=== PATIENT | male | born 1990 | race Caucasian/White ===

== ENCOUNTER 2017-04-01 02:02 | Emergency (ER) | payer OTHER ==
[2017-04-01 02:13] VITALS: BP 148/88; PULSE 88; O2SAT 98
[2017-04-01] MEDS ORDERED: Adacel Vial IM ONE ×2 (02:29→02:33)
--- NOTE | 2017-04-01 02:29 | ERPHSYRPT ---
- History of Present Illness Time Seen by Provider: 04/01/17 02:10 Source: patient Exam Limitations: clinical condition Patient Subjective Stated Complaint: Right Hand Pain Triage Nursing Assessment: Pt states he was out with friends, drinking alcohol, became angry and punched a wall. Pt has swelling noted to right hand, base of 3rd-5th digits. Pt denies other pain at this time. Pt is A&O x4, no distress noted, no active bleeding noted, skin PWD. Physician History: PATIENT BECAME ANGRY AND STRUCK RIGHT HAND AGAINST WALL SUSTAINED SWELLING OVER RIGHT HAND ASSOCIATED WITH ABRASIONS. Occurred: just prior to arrival Method of Injury: direct blow Quality: constant Severity of Pain-Max: moderate Severity of Pain-Current: moderate Extremities Pain Location: hand: right Modifying Factors: Improves With: movement Associated Symptoms: none Allergies/Adverse Reactions: No Known Drug Allergies Allergy (Verified 03/30/16 15:03) Home Medications: No Home Meds [No Home Meds] 1 ea UD 11/15/13 [History] Hx Tetanus, Diphtheria Vaccination/Date Given: No Hx Influenza Vaccination/Date Given: No Hx Pneumococcal Vaccination/Date Given: No Immunizations Up to Date: No - Review of Systems Constitutional: No Symptoms Musculoskeletal: Injury, Joint Pain, Joint Swelling Neurological: No Symptoms - Past Medical History Pertinent Past Medical History: Yes Neurological History: No Pertinent History, Migraines ENT History: No Pertinent History Cardiac History: Hypertension Respiratory History: No Pertinent History Endocrine Medical History: Other Musculoskeletal History: No Pertinent History GI Medical History: Irritable Bowel, Other History: No Pertinent History Psycho-Social History: No Pertinent History Male Reproductive Disorders: No Pertinent History Other Medical History: PANCREATITIS, PRE STAGES CROHNS - Past Surgical History Past Surgical History: Yes Neuro Surgical History: No Pertinent History Cardiac: No Pertinent History Respiratory: No Pertinent History Gastrointestinal: Cholecystectomy Genitourinary: No Pertinent History Musculoskeletal: No Pertinent History Male Surgical History: No Pertinent History - Social History Smoking Status: Current every day smoker How long have you smoked: 7 years Exposure to second hand smoke: Yes Drug Use: none Patient Lives Alone: No - Nursing Vital Signs Nursing Vital Signs: Initial Vital Signs Temperature 98.3 F 04/01/17 02:09 Pulse Rate 88 04/01/17 02:09 Respiratory Rate 14 04/01/17 02:09 Blood Pressure 148/88 04/01/17 02:09 O2 Sat by Pulse Oximetry 98 04/01/17 02:09 Pain Scale Pain Intensity 6 - Physical Exam General Appearance: no apparent distress Hand Exam: soft tissue tenderness, swelling (TENDERNESS WITH SWELLING DISTAL 3RD RIGHT 4TH -5TH METACARPALS, WITH ABRASIONS, NO ECCHYMOSIS, FULL RANGE OF MOTION MCP, PIP AND DIP JOINT ALL DIGITS.) SpO2: 98 Oxygen Delivery: Room Air - Radiology Exams Right Hand X-ray Interpretation: Interpreted by me (SOFT TISSUE WITHOUT EVIDENCE OF FRACTURE) Ordered Tests: Active Orders 24 hr Category Date Time Status Splint STAT Care 04/01/17 02:34 Ordered HAND (MINIMUM 3 VIEWS) Stat Exams 04/01/17 02:17 Taken Medication Summary Discontinued Medications Generic Name Dose Route Start Last Admin Trade Name Freq PRN Reason Stop Dose Admin Diphtheria/Tetanus/Acell Pertussis 0.5 ml 04/01/17 02:29 04/01/17 02:34 Adacel Vial IM 04/01/17 02:30 0.5 ml .ONCE ONE Administration Diphtheria/Tetanus/Acell Pertussis Confirm 04/01/17 02:33 Adacel Vial Administered 04/01/17 02:34 Dose 0.5 ml IM .STK-MED ONE Tramadol HCl 50 mg 04/01/17 02:34 04/01/17 02:37 Ultram 50 Mg PO 04/01/17 02:35 50 mg STAT ONE Administration - Progress Progress: pain not gone completely Progress Note: 04/01/17 02:33 ADMINISTERED T-DAP 0.5ML IM, ULTRAM 50MG ORALLY, ALUMINUM APPLIED BELOW SMALL FINGER. Counseled pt/family regarding: diagnosis, rad results - Departure Time of Disposition: 03:45 Departure Disposition: Home Clinical Impression: CONTUSION RIGHT HAND Condition: Stable Critical Care Time: No Referrals: TAM RODRIGUEZ [Primary Care Provider] - Additional Instructions: MAINTAIN ALUMINUM FOAM SPLINT FOR 4 DAYS THEN REMOVE. APPLY ICE OVER HAND SWELLING EVERY 4 HOURS, 30 MINUTES FOR 48 HOURS. ULTRAM 50MG EVERY 4-6 HOURS FOR PAIN NEEDED. Prescriptions: Tramadol HCl 50 mg [Ultram 50 mg] 50 mg PO Q4-6HPRN PRN #15 tablet PRN Reason: Pain
[2017-04-01] MEDS ORDERED: ULTRAM 50 MG PO ONE (02:34)
[2017-04-01] MEDS ORDERED: ULTRAM 50 MG ONE (02:37)
--- NOTE | 2017-04-01 06:56 | XRAY ---
Indication: Fourth/fifth metacarpal pain following injury. Comparison: None 3 views of the right hand obtained. No bony, articular, or soft tissue abnormalities.
== END 2017-04-01 02:58 | disposition home or self-care (01) ==
LOC: ED 02:02
DX: S60.221A Contusion of right hand, initial encounter (principal); S60.511A Abrasion of right hand, initial encounter; M79.641 Pain in right hand; M79.89 Other specified soft tissue disorders; W22.8XXA Striking against or struck by other objects, initial encounter; Z72.0 Tobacco use
CPT/HCPCS: 73130; 90471; 90715; 99283; A9270-GY

== ENCOUNTER 2017-04-18 02:13 | Emergency (ER) | payer OTHER ==
--- NOTE | 2017-04-18 02:33 | ERPHSYRPT ---
- History of Present Illness Time Seen by Provider: 04/18/17 02:20 Source: patient, police Exam Limitations: no limitations Patient Subjective Stated Complaint: PT STATES HE IS HERE TONIGHT TO SEEK HELP FOR HIS ALCOHOL ABUSE. PT CALLED SHERIFF MATY BUSTAMANTE TO SPEAK ABOUT GETTING TREATMENT TONIGHT. PT ADMITS TO DRINKING HEAVILY TONIGHT. PT REPORTS HE HAS CONSUMED APPROXIMATELY 1.5 FIFTHS OF WHISKEY. PT REPORTS HE HAS DRANK HEAVILY SINCE TURNING 22. STATES THAT HE DRINKS CONSISTENTLY AND WILL SOMETIMES TAKES A DAY OR TWO OFF. REPORTS HAVING INFREQUENT THOUGHTS OF HURTING HIMSELF BUT DENIES ANY SUICIDAL IDEATION THIS NIGHT. PT STATES " ALCOHOL IS RUINED EVERYTHING, I FEEL LIKE AN IDIOT FOR COMING NOW" Triage Nursing Assessment: PT IS AOX3, PUPILS PERRL, RESPS EASY AND NON LABORED , RADIAL PULSES STRONG AND EQUAL, ABD IS SOFT NON TENDER, SKIN IS PINK WARM AND DRY. PT IS COOPERATIVE WITH STAFF AT THIS TIME. PT HAS SIGNED CONSENT AND IS VOLUNTARY AT THIS TIME. Physician History: 26 y/o male brought in by police for alcohol intoxication. Pt mentions he has been drinking a 1/5th of vodka throughout the evening and has been drinking consistently since age 22. Pt also mentions he smoked marijuana twice, but denies any other illicit drug use. Pt says that when he drinks alcohol, he has a fleeting thought of not wanting to live but denies any suicide ideation, plan , homicidal ideation, hallucinations. Timing/Duration: today Associated Symptoms: No nausea, No vomiting, No weakness Allergies/Adverse Reactions: No Known Drug Allergies Allergy (Verified 04/18/17 02:27) Home Medications: No Home Meds [No Home Meds] 1 ea ABHIJEET 11/15/13 [History] Hx Tetanus, Diphtheria Vaccination/Date Given: Yes Hx Influenza Vaccination/Date Given: No Hx Pneumococcal Vaccination/Date Given: No Immunizations Up to Date: Yes - Review of Systems Constitutional: No Fever, No Chills Eyes: No Symptoms Ears, Nose, & Throat: No Symptoms Respiratory: No Cough, No Dyspnea Cardiac: No Chest Pain, No Edema, No Syncope Abdominal/Gastrointestinal: No Abdominal Pain, No Nausea, No Vomiting, No Diarrhea Genitourinary Symptoms: No Dysuria Musculoskeletal: No Back Pain, No Neck Pain Skin: No Rash Neurological: No Dizziness, No Focal Weakness, No Sensory Changes Psychological: Alcohol Abuse, No Drug Abuse, No Anxiety, No Suicidal Ideations, No Hallucinations Endocrine: No Symptoms All Other Systems: Reviewed and Negative - Past Medical History Pertinent Past Medical History: Yes Neurological History: No Pertinent History, Migraines ENT History: No Pertinent History Cardiac History: Hypertension Respiratory History: No Pertinent History Endocrine Medical History: Other Musculoskeletal History: No Pertinent History GI Medical History: Crohns Disease, Irritable Bowel, Other History: No Pertinent History Psycho-Social History: No Pertinent History Male Reproductive Disorders: No Pertinent History Other Medical History: PANCREATITIS, PRE STAGES CROHNS, ADHD - Past Surgical History Past Surgical History: Yes Neuro Surgical History: No Pertinent History Cardiac: No Pertinent History Respiratory: No Pertinent History Gastrointestinal: Cholecystectomy Genitourinary: No Pertinent History Musculoskeletal: No Pertinent History Male Surgical History: No Pertinent History - Social History Smoking Status: Current every day smoker How long have you smoked: 7 years Exposure to second hand smoke: Yes Drug Use: marijuana Patient Lives Alone: Yes - Nursing Vital Signs Nursing Vital Signs: Initial Vital Signs Temperature 98.1 F 04/18/17 02:14 Pulse Rate 99 H 04/18/17 02:14 Respiratory Rate 20 04/18/17 02:14 Blood Pressure 171/80 04/18/17 02:14 O2 Sat by Pulse Oximetry 98 04/18/17 02:14 Pain Scale Pain Intensity 0 - Physical Exam General Appearance: no apparent distress, alert Eye Exam: PERRL/EOMI, eyes nml inspection Ears, Nose, Throat Exam: normal ENT inspection, TMs normal, pharynx normal, moist mucous membranes Neck Exam: normal inspection, non-tender, supple, full range of motion Respiratory Exam: normal breath sounds, lungs clear, No respiratory distress Cardiovascular Exam: regular rate/rhythm, normal heart sounds, normal peripheral pulses Gastrointestinal/Abdomen Exam: soft, normal bowel sounds, No tenderness, No mass Back Exam: normal inspection, normal range of motion, No CVA tenderness, No vertebral tenderness Extremity Exam: normal inspection, normal range of motion, pelvis stable Neurologic Exam: alert, oriented x 3, cooperative, normal mood/affect, nml cerebellar function, nml station & gait, sensation nml, No motor deficits Skin Exam: normal color, warm, dry, No rash Lymphatic Exam: No adenopathy SpO2: 98 Oxygen Delivery: Room Air - Course Nursing assessment & vital signs reviewed: Yes Ordered Tests: Active Orders 24 hr Category Date Time Status ACETAMINOPHEN Stat Lab 04/18/17 02:55 Completed CBC W DIFF Stat Lab 04/18/17 02:55 Completed CMP Stat Lab 04/18/17 02:55 Completed ETHYL ALCOHOL Stat Lab 04/18/17 02:55 Completed SALICYLATE Stat Lab 04/18/17 02:55 Completed Urine Triage Profile Stat Lab 04/18/17 03:52 Completed Medication Summary Discontinued Medications Generic Name Dose Route Start Last Admin Trade Name Alvina PRN Reason Stop Dose Admin Potassium Chloride 40 meq 04/18/17 04:09 04/18/17 04:10 Klor Con 10 Meq PO 04/18/17 04:10 40 meq STAT ONE Administration Potassium Chloride Confirm 04/18/17 04:10 Klor Con 10 Meq Administered 04/18/17 04:11 Dose 40 meq PO .TrashOut-Capitol Bells ONE Lab/Rad Data: Laboratory Result Diagrams 04/18/17 02:55 04/18/17 02:55 Laboratory Results 04/18/17 04/18/17 04/18/17 Range/Units 03:52 02:55 02:55 WBC 12.7 H (4.0-10.5) K/mm3 RBC 4.88 (4.1-5.6) M/mm3 Hgb 15.6 (12.5-18.0) gm/dl Hct 44.4 (42-50) % MCV 91.0 (78-100) fl MCH 32.0 (26-32) pg MCHC 35.1 (32-36) g/dl RDW 12.9 (11.5-14.0) % Plt Count 330 (150-450) K/mm3 MPV 10.5 H (6-9.5) fl Gran % 61.5 (36.0-66.0) % Lymphocytes % 29.2 (24.0-44.0) % Monocytes % 7.2 (0.0-12.0) % Eosinophils % 1.7 (0.00-5.0) % Basophils % 0.4 (0.0-0.4) % Basophils # 0.05 (0-0.4) Sodium 144 (136-145) mEq/L Potassium 3.0 L* (3.5-5.1) mEq/L Chloride 107 (98-107) mEq/L Carbon Dioxide 24.3 (21-32) mEq/L Anion Gap 15.6 H (5-15) MEQ/L BUN 7 L (9-20) mg/dL Creatinine 0.83 (0.55-1.30) mg/dl Estimated GFR > 60 ML/MIN Glucose 113 H (70-110) MG/DL Calcium 8.3 L (8.5-10.1) mg/dL Total Bilirubin 0.70 (0.2-1.0) mg/dL AST 33 (15-37) U/L ALT 55 (12-78) U/L Alkaline Phosphatase 93 (46-116) U/L Serum Total Protein 7.0 (6.4-8.2) gm/dL Albumin 3.8 (3.4-5.0) g/dL Salicylates < 2.8 L (2.8-20.0) mg/dl Urine Opiates Level NEG. (NEGATIVE) Ur Methadone NEG. (NEGATIVE) Acetaminophen < 2.0 L (10-30) ug/ml Urine Barbiturates NEG. (NEGATIVE) Ur Phencyclidine (PCP) NEG. (NEGATIVE) Urine Amphetamine NEG. (NEGATIVE) U Benzodiazepine Level NEG. (NEGATIVE) Urine Cocaine NEG. (NEGATIVE) Urine Marijuana (THC) NEG. (NEGATIVE) Ethyl Alcohol 0.111 H* (0.00-0.01) % - Progress Progress: unchanged Progress Note: 04/18/17 04:42 Pt has an alcohol level of 0.111 and a K of 3.0 that will be replaced. Otherwise the patient has been medically cleared and the patient has been accepted at [facility] under the care of Dr Marinelli for alcohol abuse. - Departure Time of Disposition: 04:43 Departure Disposition: Transfer Clinical Impression: Alcohol abuse Condition: Stable Critical Care Time: No Referrals: TAM RODRIGUEZ [Primary Care Provider] -
[2017-04-18 03:01] LABS: BASOPHIL % 0.4 % (0.0-0.4); Basophil (Absolute #) 0.05 (0-0.4); Eosinophil % 1.7 % (0.00-5.0); Eosinophil (Absolute #) 0.21 (0-0.5); Granulocyte Absolute (ANC) 7.83 (1.4-6.9); Granulocytes % 61.5 % (36.0-66.0); Hematocrit 44.4 % (42-50); Hemoglobin 15.6 gm/dl (12.5-18.0); Lymphocyte (Absolute #) 3.71 (1.0-4.6); Lymphocytes % 29.2 % (24.0-44.0); Mean Corpuscular Hgb Concent. 35.1 g/dl (32-36); Mean Platelet Volume 10.5 fl (6-9.5); Monocyte (Absolute #) 0.92 (0.0-1.3); Monocytes % 7.2 % (0.0-12.0); Platelet Count 330 K/mm3 (150-450); Red Blood Count 4.88 M/mm3 (4.1-5.6); Red Cell Distribution Width 12.9 % (11.5-14.0); White Blood Count 12.7 K/mm3 (4.0-10.5)
[2017-04-18 03:20] LABS: ALBUMIN 3.8 g/dL (3.4-5.0); ALKALINE PHOSPHATASE 93 U/L (46-116); ANION GAP 15.6 MEQ/L (5-15); BLOOD UREA NITROGEN 7 mg/dL (9-20); CHLORIDE 107 mEq/L (98-107); Calcium 8.3 mg/dL (8.5-10.1); Carbon Dioxide 24.3 mEq/L (21-32); Creatinine 1 0.83 mg/dl (0.55-1.30); EST GLOMERULAR FILTRATION RATE > 60 ML/MIN; ETHYL ALCOHOL 0.111 % (0.00-0.01); Glucose 113 MG/DL (70-110); SALICYLATE < 2.8 mg/dl (2.8-20.0); SGOT/AST 33 U/L (15-37); SGPT/ALT 55 U/L (12-78); SODIUM 144 mEq/L (136-145)
[2017-04-18 03:22] LABS: ACETAMINOPHEN < 2.0 ug/ml (10-30)
[2017-04-18 04:00] LABS: Amphetamine,Urine NEG. (NEGATIVE); Barbiturate,Urine NEG. (NEGATIVE); Benzodiazepine,Urine NEG. (NEGATIVE); Cocaine,Urine NEG. (NEGATIVE); Methadone,Urine NEG. (NEGATIVE); Opiate,Urine NEG. (NEGATIVE); PCP,Urine NEG. (NEGATIVE); THC,Urine NEG. (NEGATIVE)
[2017-04-18] MEDS ORDERED: Klor Con 10 MEQ PO ONE (04:10)
[2017-04-18] MEDS: Klor Con 10 MEQ PO ONE (04:10)
[2017-04-18 04:45] VITALS: BP 130/55; PULSE 84; O2SAT 97
== END 2017-04-18 05:20 | disposition short-term general hospital (02) ==
LOC: ED 02:13
DX: F10.10 Alcohol abuse, uncomplicated (principal)
CPT/HCPCS: 36415; 80053; 80307; 85025; 99285; G0481; A9270-GY

== ENCOUNTER 2019-04-23 05:59 | Day surgery (SDC) | payer OTHER ==
[2019-04-23] MEDS ORDERED: Lactated Ringers 1,000 ML IV SCH (06:30)
[2019-04-23] MEDS ORDERED: Versed 2 MG/2 ML Injection ONE (07:54)
[2019-04-23] MEDS ORDERED: Ketamine HCl 50 MG/ML ONE (07:56)
[2019-04-23] MEDS ORDERED: DIPRIVAN 200 MG/20 ML IV ONE ×2 (07:56)
[2019-04-23 09:14] VITALS: BP 120/85; O2SAT 97
[2019-04-23 09:25] VITALS: PULSE 75
--- NOTE | 2019-04-23 12:23 | OP ---
SURGERY DATE/TIME: 04/23/2019 0750 PREOPERATIVE DIAGNOSIS: Rectal bleeding. POSTOPERATIVE DIAGNOSIS: Normal colon. PROCEDURE: Colonoscopy. SURGEON: Dr. Aponte. ANESTHESIA: MAC. Medications given by anesthesia department. HISTORY: The patient is a 28 year-old white male who presents now with complaints of intermittent bright red rectal bleeding over the past several months. The patient was felt the need to have endoscopic evaluation. He was apprised of the risks of the procedure including the risk of perforation, phlebitis, untoward reaction to medication, bleeding and missed lesions. The patient verbalized his understanding and desired to have the procedure performed. DESCRIPTION OF PROCEDURE: The patient was given the medications by the anesthesia department. He had continuous pulse oximetry, ECG monitoring, intermittent blood pressure monitoring and tidal CO2 monitoring during the examination. He was placed in the left lateral decubitus position. A digital rectal examination was performed and revealed normal anal sphincter tone, no masses and normal prostate. The flexible Olympus pediatric colonoscope was used to intubate the rectum. A view of the colon was developed sequentially to the cecum including a distance of approximately 10 cm into the terminal ileum. Upon insertion and withdrawal, including a retroflex view in the rectum, no mucosal lesions were encountered. The scope was removed from the patient who tolerated the procedure well and was sent back to OP recovery in good condition. The prep was noted to be fair to good.
== END 2019-04-23 09:26 | disposition home or self-care (01) ==
LOC: SDC 05:59
PROVIDERS: ATTEND Family Medicine
DX: K62.5 Hemorrhage of anus and rectum (principal)
CPT/HCPCS: J2250; J2704

== ENCOUNTER 2022-08-18 01:48 | Emergency (ER) | payer BC, OTHER ==
--- NOTE | 2022-08-18 01:54 | ERPHSYRPT ---
- History of Present Illness Time Seen by Provider: 08/18/22 01:54 Source: patient Exam Limitations: no limitations Physician History: 31-year-old male presents to the emergency room after getting overheated at work. Patient reports that the air conditioning was not working at his place of employment and started to feel very hot and sweaty and overall felt unwell. For feeling like this patient checked his blood pressure and found it to be elevated 150s over 100s. He denied any fever, chills, nausea, vomiting, dizziness, lightheadedness, chest pain, SOB, abdominal pain or swelling. Patient feels like he is dehydrated after having a long weekend of drinking in inadequate rehydration. Timing/Duration: today Activities at Onset: activity Severity of Pain-Max: none Severity of Pain-Current: none Modifying Factors: Improves With: nothing Nitro Today/Relief: no nitro taken today Aspirin Treatment Today: no aspirin today Associated Symptoms: diaphoresis, No nausea, No vomiting, No abdominal pain, No shortness of breath, No cough, No chills, No chest pain, No fever, No headaches, No loss of appetite Prior Chest Pain/Cardiac Workup: no prior cardiac workup Allergies/Adverse Reactions: No Known Drug Allergies Allergy (Verified 08/18/22 02:04) Home Medications: No Home Meds [No Home Meds] 1 [facility] 11/15/13 [History] Hx Tetanus, Diphtheria Vaccination/Date Given: Yes Hx Influenza Vaccination/Date Given: No Hx Pneumococcal Vaccination/Date Given: No - Review of Systems Constitutional: Fatigue, No Fever, No Chills Eyes: No Symptoms Ears, Nose, & Throat: No Symptoms Respiratory: No Symptoms Cardiac: No Symptoms Abdominal/Gastrointestinal: No Symptoms Genitourinary Symptoms: No Symptoms Musculoskeletal: No Symptoms Skin: No Symptoms Neurological: No Symptoms Psychological: No Symptoms - Past Medical History Pertinent Past Medical History: Yes Neurological History: No Pertinent History, Migraines ENT History: No Pertinent History Cardiac History: Hypertension Respiratory History: No Pertinent History Endocrine Medical History: Other Musculoskeletal History: Other GI Medical History: Crohns Disease, GERD, Irritable Bowel, Ulcer, Other History: No Pertinent History Psycho-Social History: Anxiety, Attention Deficit Disorder Male Reproductive Disorders: No Pertinent History Other Medical History: hx PANCREATITIS, "PRE STAGES CROHNS", ADHD. acid reflux and possible ulcers. back pain - Past Surgical History Past Surgical History: Yes Neuro Surgical History: No Pertinent History Cardiac: No Pertinent History Respiratory: No Pertinent History Gastrointestinal: Cholecystectomy Genitourinary: No Pertinent History Musculoskeletal: No Pertinent History Male Surgical History: No Pertinent History - Social History Smoking Status: Current every day smoker How long have you smoked: 7 years Exposure to second hand smoke: Yes Drug Use: marijuana Patient Lives Alone: Yes - Nursing Vital Signs Nursing Vital Signs: Initial Vital Signs Temperature 96.4 F 08/18/22 01:53 Pulse Rate 94 H 08/18/22 01:53 Respiratory Rate 18 08/18/22 01:53 Blood Pressure 148/109 08/18/22 01:53 O2 Sat by Pulse Oximetry 99 08/18/22 01:53 Pain Scale Pain Intensity 0 - Physical Exam General Appearance: no apparent distress, obese Eye Exam: eyes nml inspection Ears, Nose, Throat Exam: normal ENT inspection Neck Exam: normal inspection, supple, full range of motion Respiratory Exam: normal breath sounds, lungs clear, airway intact, No respiratory distress Cardiovascular Exam: regular rate/rhythm, normal heart sounds, capillary refill <2 sec Gastrointestinal/Abdomen Exam: soft, normal bowel sounds, No tenderness, No dis tention, No guarding, No rebound Extremity Exam: normal inspection, normal range of motion, No swelling, No tenderness Neurologic Exam: alert, oriented x 3, cooperative, normal mood/affect, nml cerebellar function, sensation nml Skin Exam: normal color, warm, dry SpO2 Interpretation: normal O2 Delivery: Room Air - Course Nursing assessment & vital signs reviewed: Yes Ordered Tests: Active Orders 24 hr Category Date Time Status IV Insertion STAT Care 08/18/22 02:04 Active CBC W DIFF Stat Lab 08/18/22 02:18 Completed CMP Stat Lab 08/18/22 02:18 Completed Medication Summary Discontinued Medications Generic Name Dose Route Start Last Admin Trade Name Freq PRN Reason Stop Dose Admin Chlorthalidone 25 mg 08/18/22 02:55 Chlorthalidone 25 Mg Tablet PO 08/18/22 02:56 ONCE ONE Sodium Chloride 1,000 mls @ 999 mls/hr 08/18/22 02:04 08/18/22 02:21 Sodium Chloride 0.9% 1000 Ml IV 08/18/22 03:04 999 mls/hr .Q1H1M STA Administration Sodium Chloride Confirm 08/18/22 02:19 Sodium Chloride 0.9% 1000 Ml Administered 08/18/22 02:20 Dose 1,000 mls @ ud .ROUTE .STK-MED ONE Labetalol HCl 20 mg 08/18/22 03:00 08/18/22 03:07 Labetalol Hcl 20 Mg/4 Ml Disp.Syringe IV 08/18/22 03:01 20 mg STAT ONE Administration Labetalol HCl Confirm 08/18/22 03:04 Labetalol Hcl 20 Mg/4 Ml Disp.Syringe Administered 08/18/22 03:05 Dose 20 mg IV .STK-MED ONE Potassium Chloride 40 meq 08/18/22 02:54 08/18/22 03:07 Potassium Chloride Tab 10 Meq Tab PO 08/18/22 02:55 40 meq STAT ONE Administration Potassium Chloride Confirm 08/18/22 03:03 Potassium Chloride Tab 10 Meq Tab Administered 08/18/22 03:04 Dose 40 meq PO .STK-MED ONE Lab/Rad Data: Laboratory Result Diagrams 08/18/22 02:18 08/18/22 02:18 Laboratory Results 08/18/22 08/18/22 Range/Units 02:18 02:18 WBC 14.2 H (4.0-10.5) x10^3/uL RBC 4.74 (4.1-5.6) x10^6/uL Hgb 14.1 (12.5-18.0) g/dL Hct 41.4 L (42-50) % MCV 87.3 (78-100) fL MCH 29.7 (26-32) pg MCHC 34.1 (32-36) g/dL RDW 13.4 (11.5-14.0) % Plt Count 320 (150-450) x10^3/uL MPV 9.8 (7.5-11.0) fL Gran % 71.3 H (36.0-66.0) % Immature Gran % (Auto) 0.6 H (0.00-0.4) % Nucleat RBC Rel Count 0.0 (0.00-0.1) % Eos # (Auto) 0.10 (0-0.5) x10^3/uL Immature Gran # (Auto) 0.09 H (0.00-0.03) x10^3u/L Absolute Lymphs (auto) 2.72 (1.0-4.6) x10^3/uL Absolute Monos (auto) 1.08 (0.0-1.3) x10^3/uL Absolute Nucleated RBC 0.00 (0.00-0.01) x10^3u/L Lymphocytes % 19.2 L (24.0-44.0) % Monocytes % 7.6 (0.0-12.0) % Eosinophils % 0.7 (0.00-5.0) % Basophils % 0.6 (0.0-0.4) % Absolute Granulocytes 10.07 H (1.4-6.9) x10^3/uL Basophils # 0.09 (0-0.4) x10^3/uL Sodium 138 (137-145) mmol/L Potassium 3.5 (3.5-5.1) mmol/L Chloride 101 (98-107) mmol/L Carbon Dioxide 26 (22-30) mmol/L Anion Gap 15.0 (5-15) MEQ/L BUN 16 (9-20) mg/dL Creatinine 0.97 (0.66-1.25) mg/dL Estimated GFR > 60.0 ML/MIN Glucose 108 H (74-106) mg/dL Calcium 8.8 (8.4-10.2) mg/dL Total Bilirubin 1.00 (0.2-1.3) mg/dL AST 50 (17-59) U/L ALT 62 H (0-50) U/L Alkaline Phosphatase 81 (38-126) U/L Serum Total Protein 7.5 (6.3-8.2) g/dL Albumin 4.3 (3.5-5.0) g/dL - Progress Progress: improved Air Movement: good Progress Note: Labs ordered and bolus of normal saline given. 08/18/22 03:04 Feeling much better after IV fluids, his blood pressure remains elevated last measurement was 158/111 so decision was made to give 20 mg of IV labetalol. Patient was supposed to be on antihypertensives in the past, but his primary care physician retired and has not been taking any meds. I discussed adding chlorthalidone and encourage patient to find a primary care provider to continue further management. Patient also had an elevated ALT at 67 and I discussed decreasing alcohol intake and following up with PCP as well. His potassium was 3.5 so 40meq of potassium chloride was given p.o. He did have an elevated white cell count of 14.2 with lymphocytic predominance likely viral etiology. Blood Culture(s) Obtained: No Antibiotics given: No Counseled pt/family regarding: lab results, diagnosis, need for follow-up Medical Desision Making - Diagnostic Testing Diagnostic test were ordered, analyzed, and reviewed by me: Yes Radiological Interpretation: Interpreted by me - Risk of complications The pt has a mod risk of morbidity or mortality based on: Need for prescription drug management - Departure Departure Disposition: Home Clinical Impression: Hypokalemia, Heat exhaustion, Elevated ALT measurement, Leukocytosis, Dehydration, Hypertensive urgency Condition: Good Critical Care Time: No Referrals: DOCTOR,NO FAMILY [Primary Care Provider] - Follow up/PCP as directed Instructions: Malignant Hypertension (DC) Prescriptions: Chlorthalidone 25 mg PO DAILY #30 tablet
[2022-08-18] MEDS ORDERED: Sodium Chloride 0.9% 1000 ML 1,000 ML IV STA (02:04)
[2022-08-18] MEDS ORDERED: Sodium Chloride 0.9% 1000 ML 1,000 ML ONE (02:19)
[2022-08-18 02:20] LABS: Absolute Neutrophil Ct (ANC) 10.07 x10^3/uL (1.4-6.9); BASOPHIL % 0.6 % (0.0-0.4); Basophil (Absolute #) 0.09 x10^3/uL (0-0.4); Eosinophil % 0.7 % (0.00-5.0); Hematocrit 41.4 % (42-50); Hemoglobin 14.1 g/dL (12.5-18.0); IMMATURE GRAN # 0.09 x10^3u/L (0.00-0.03); IMMATURE GRAN % 0.6 % (0.00-0.4); Lymphocyte (Absolute #) 2.72 x10^3/uL (1.0-4.6); Lymphocytes % 19.2 % (24.0-44.0); Mean Cell Volume 87.3 fL (78-100); Mean Corpuscular Hemoglobin 29.7 pg (26-32); Mean Corpuscular Hgb Concent. 34.1 g/dL (32-36); Mean Platelet Volume 9.8 fL (7.5-11.0); Monocyte (Absolute #) 1.08 x10^3/uL (0.0-1.3); Monocytes % 7.6 % (0.0-12.0); Neutrophil % 71.3 % (36.0-66.0); Platelet Count 320 x10^3/uL (150-450); Red Blood Count 4.74 x10^6/uL (4.1-5.6); Red Cell Distribution Width 13.4 % (11.5-14.0); White Blood Count 14.2 x10^3/uL (4.0-10.5)
[2022-08-18 02:37] LABS: ALBUMIN 4.3 g/dL (3.5-5.0); ALKALINE PHOSPHATASE 81 U/L (38-126); BLOOD UREA NITROGEN 16 mg/dL (9-20); CHLORIDE 101 mmol/L (98-107); Calcium 8.8 mg/dL (8.4-10.2); Carbon Dioxide 26 mmol/L (22-30); Creatinine 1 0.97 mg/dL (0.66-1.25); EST GLOMERULAR FILTRATION RATE > 60.0 ML/MIN; Glucose 108 mg/dL (74-106); Potassium 3.5 mmol/L (3.5-5.1); SGOT/AST 50 U/L (17-59); SGPT/ALT 62 U/L (0-50); SODIUM 138 mmol/L (137-145); Total Protein 7.5 g/dL (6.3-8.2)
[2022-08-18] MEDS ORDERED: Klor Con PO ONE ×2 (02:54→03:03)
[2022-08-18] MEDS ORDERED: CHLORTHALIDONE PO ONE (02:55)
[2022-08-18] MEDS ORDERED: TRANDATE 20 MG/4 ML SYRINGE IV ONE ×2 (03:00→03:04)
[2022-08-18 03:27] VITALS: PULSE 83
[2022-08-18 03:31] VITALS: BP 126/97; O2SAT 97
== END 2022-08-18 03:43 | disposition home or self-care (01) ==
LOC: ED 01:48
DX: T67.3XXA Heat exhaustion, anhydrotic, initial encounter (principal); X30.XXXA Exposure to excessive natural heat, initial encounter; Y99.0 Civilian activity done for income or pay; E87.6 Hypokalemia; R74.01 Elevation of levels of liver transaminase levels; D72.829 Elevated white blood cell count, unspecified; E86.0 Dehydration; I16.0 Hypertensive urgency; I10 Essential (primary) hypertension; Z72.0 Tobacco use
CPT/HCPCS: 36000; 36415; 80053; 85025; 96374; 99284; A9270-GY

== ENCOUNTER 2022-10-04 20:54 | Emergency (ER) | payer BC, OTHER ==
[2022-10-04] MEDS ORDERED: Sodium Chloride 0.9% 1000 ML 1,000 ML IV STA ×2 (21:36→23:46)
[2022-10-04] MEDS ORDERED: Sodium Chloride 0.9% 1000 ML 1,000 ML ONE ×2 (21:40→23:56)
[2022-10-04 21:57] LABS: Absolute Neutrophil Ct (ANC) 13.12 x10^3/uL (1.4-6.9); BASOPHIL % 0.5 % (0.0-0.4); Basophil (Absolute #) 0.09 x10^3/uL (0-0.4); Eosinophil % 0.1 % (0.00-5.0); Eosinophil (Absolute #) 0.02 x10^3/uL (0-0.5); Hematocrit 43.5 % (42-50); IMMATURE GRAN # 0.15 x10^3u/L (0.00-0.03); IMMATURE GRAN % 0.8 % (0.00-0.4); Lymphocyte (Absolute #) 3.78 x10^3/uL (1.0-4.6); Mean Corpuscular Hemoglobin 29.6 pg (26-32); Mean Corpuscular Hgb Concent. 34.5 g/dL (32-36); Monocyte (Absolute #) 0.84 x10^3/uL (0.0-1.3); Monocytes % 4.7 % (0.0-12.0); Neutrophil % 72.9 % (36.0-66.0); Platelet Count 410 x10^3/uL (150-450); Red Blood Count 5.06 x10^6/uL (4.1-5.6); Red Cell Distribution Width 12.8 % (11.5-14.0)
[2022-10-04 22:09] LABS: ALBUMIN 4.3 g/dL (3.5-5.0); ALKALINE PHOSPHATASE 63 U/L (38-126); ANION GAP 15.7 MEQ/L (5-15); BLOOD UREA NITROGEN 20 mg/dL (9-20); CHLORIDE 99 mmol/L (98-107); Carbon Dioxide 23 mmol/L (22-30); Creatinine 1 0.82 mg/dL (0.66-1.25); EST GLOMERULAR FILTRATION RATE > 60.0 ML/MIN; Glucose 138 mg/dL (74-106); Potassium 3.1 mmol/L (3.5-5.1); SGOT/AST 39 U/L (17-59); SGPT/ALT 36 U/L (0-50); SODIUM 134 mmol/L (137-145); Total Protein 7.3 g/dL (6.3-8.2)
[2022-10-04 23:13] VITALS: O2SAT 96
[2022-10-04] MEDS ORDERED: Klor Con PO ONE ×2 (23:15→23:27)
[2022-10-04] MEDS ORDERED: MAGNESIUM SULF 2 G/50 ML BAG 2 GM/50 ML PIGGYBACK IV SCH (23:15)
--- NOTE | 2022-10-04 23:26 | ERPHSYRPT ---
- History of Present Illness Time Seen by Provider: 10/04/22 23:20 Source: patient Exam Limitations: no limitations Patient Subjective Stated Complaint: pt states he has been having intermittent dizziness, weakness, feeling light headed when standing up. also c/o occasional shortness of breath. states symptoms have been intermittent over last 6 weeks Triage Nursing Assessment: pt alert and oriented, answers questions approp. pt ambualtes into room with steady gait noted. respirations nonlabored. skin clammy, cool. heart rate 130's sinus tach on monitor. Physician History: Patient is a 32-year-old male presents to our ED for evaluation of intermittent dizziness generalized weakness and some lightheaded particularly when he transitions from sitting to standing. Symptoms have been ongoing for about 6 weeks but significantly worse over the past week. Patient states he donated plasma twice in 1 week.. Patient denies pain. No nausea vomiting or diaphoresis. Symptoms are mild to moderate in intensity. No specific worsening or improving factors. Patient states he is otherwise healthy as far as he knows. He voices no other complaints or concerns at this time. Portions of this note were created with voice recognition technology. There may be grammatical, spelling, punctuation or sound alike errors Timing/Duration: week(s) (6 weeks) Severity: moderate Modifying Factors: Improves With: nothing Associated Symptoms: shortness of breath (Mild shortness of breath), No nausea, No vomiting Allergies/Adverse Reactions: No Known Drug Allergies Allergy (Verified 10/04/22 21:36) Home Medications: No Home Meds [No Home Meds] 1 paulette ABHIJEET 11/15/13 [History] Hx Tetanus, Diphtheria Vaccination/Date Given: Yes Hx Influenza Vaccination/Date Given: No Hx Pneumococcal Vaccination/Date Given: No Immunizations Up to Date: Yes Travel Risk - International Travel Have you traveled outside of the country in past 3 weeks: No - Coronavirus Screening Are you exhibiting any of the following symptoms?: No Close contact with a COVID-19 positive Pt in past 14-21 Days: No - Vaccine Status Have you recieved a Covid-19 vaccination: No - Review of Systems Constitutional: No Symptoms, No Fever, No Chills Eyes: No Symptoms Ears, Nose, & Throat: No Symptoms Respiratory: No Symptoms, No Cough, No Dyspnea Cardiac: No Symptoms, No Chest Pain, No Edema, No Syncope Abdominal/Gastrointestinal: No Symptoms, No Abdominal Pain, No Nausea, No Vomiting, No Diarrhea Genitourinary Symptoms: No Symptoms, No Dysuria Musculoskeletal: No Symptoms, No Back Pain, No Neck Pain Skin: No Symptoms, No Rash Neurological: No Symptoms, No Dizziness, No Focal Weakness, No Sensory Changes Psychological: No Symptoms Endocrine: No Symptoms Hematologic/Lymphatic: No Symptoms Immunological/Allergic: No Symptoms All Other Systems: Reviewed and Negative - Past Medical History Pertinent Past Medical History: Yes Neurological History: No Pertinent History, Migraines ENT History: No Pertinent History Cardiac History: Hypertension Respiratory History: No Pertinent History Endocrine Medical History: Other Musculoskeletal History: Other GI Medical History: Crohns Disease, GERD, Irritable Bowel, Ulcer, Other History: No Pertinent History Psycho-Social History: Anxiety, Attention Deficit Disorder Male Reproductive Disorders: No Pertinent History Other Medical History: hx PANCREATITIS, "PRE STAGES CROHNS", ADHD. acid reflux and possible ulcers. back pain - Past Surgical History Past Surgical History: Yes Neuro Surgical History: No Pertinent History Cardiac: No Pertinent History Respiratory: No Pertinent History Gastrointestinal: Cholecystectomy Genitourinary: No Pertinent History Musculoskeletal: No Pertinent History Male Surgical History: No Pertinent History - Social History Smoking Status: Current every day smoker How long have you smoked: 12yrs Exposure to second hand smoke: Yes Drug Use: none Patient Lives Alone: No - Nursing Vital Signs Nursing Vital Signs: Initial Vital Signs Temperature 97.1 F 10/04/22 21:18 Pulse Rate 127 H 10/04/22 21:18 Respiratory Rate 18 10/04/22 21:18 Blood Pressure 130/82 10/04/22 21:18 O2 Sat by Pulse Oximetry 95 10/04/22 21:18 Pain Scale Pain Intensity 0 - Physical Exam General Appearance: no apparent distress, alert Eye Exam: PERRL/EOMI, eyes nml inspection Ears, Nose, Throat Exam: normal ENT inspection, TMs normal, pharynx normal, moist mucous membranes Neck Exam: normal inspection, non-tender, supple, full range of motion Respiratory Exam: normal breath sounds, lungs clear, airway intact, No respiratory distress Cardiovascular Exam: regular rate/rhythm, normal heart sounds, normal peripheral pulses Gastrointestinal/Abdomen Exam: soft, normal bowel sounds, No tenderness, No mass Back Exam: normal inspection, normal range of motion, No CVA tenderness, No vertebral tenderness Extremity Exam: normal inspection, normal range of motion, pelvis stable Neurologic Exam: alert, oriented x 3, cooperative, normal mood/affect, nml cerebellar function, nml station & gait, sensation nml, No motor deficits Skin Exam: normal color, warm, dry, No rash Lymphatic Exam: No adenopathy SpO2 Interpretation: normal SpO2: 96 O2 Delivery: Room Air - Course Nursing assessment & vital signs reviewed: Yes EKG Interpreted by Me: RATE (122), Sinus Tach, NORMAL AXIS, NORMAL INTERVALS - Radiology Exams Chest X-ray Interpretation: Reviewed by me (Normal heart lungs and bony thorax.) Ordered Tests: Active Orders 24 hr Category Date Time Status EKG-ER Only STAT Care 10/04/22 21:36 Active IV Insertion STAT Care 10/04/22 21:36 Active Orthostatic Vital Signs STAT Care 10/04/22 21:36 Active CHEST 1 VIEW (PORTABLE) Stat Exams 10/04/22 23:22 Taken CBC W DIFF Stat Lab 10/04/22 21:54 Completed CMP Stat Lab 10/04/22 21:54 Completed D-DIMER QUANTITATIVE Stat Lab 10/04/22 21:54 Completed POCT GLUCOSE Stat Lab 10/04/22 21:19 Completed TROPONIN Q4H Lab 10/04/22 21:54 Completed TROPONIN Q4H Lab 10/05/22 00:03 Completed TROPONIN Q4H Lab 10/05/22 05:45 Ordered TSH [TSH, 3RD Generation] Stat Lab 10/04/22 21:54 Completed UA W/RFX UR CULTURE Stat Lab 10/04/22 23:26 Completed Urine Triage Profile Stat Lab 10/04/22 23:26 Completed Medication Summary Generic Name Dose Route Start Last Admin Trade Name Freq PRN Reason Stop Dose Admin Magnesium Sulfate/Dextrose 100 mls @ 100 mls/hr 10/04/22 23:45 10/04/22 23:59 Magnesium 1 Gm / 100 Ml D5w IV 10/05/22 01:44 100 mls/hr Q1H FRANK Administration Discontinued Medications Generic Name Dose Route Start Last Admin Trade Name Freq PRN Reason Stop Dose Admin Sodium Chloride 1,000 mls @ 999 mls/hr 10/04/22 21:36 10/04/22 23:23 Sodium Chloride 0.9% 1000 Ml IV 10/04/22 22:36 Infused .Q1H1M STA Infusion Sodium Chloride Confirm 10/04/22 21:40 Sodium Chloride 0.9% 1000 Ml Administered 10/04/22 21:41 Dose 1,000 mls @ ud .ROUTE .STK-MED ONE Magnesium Sulfate/Water 2 gm in 50 mls @ 100 mls/hr 10/04/22 23:15 Magnesium Sulf 2 G/50 Ml Bag IV 10/05/22 23:44 Q30MIN FRANK Magnesium Sulfate/Dextrose Confirm 10/04/22 23:27 Magnesium 1 Gm / 100 Ml D5w Administered 10/04/22 23:28 Dose 200 mls @ ud IV .STK-MED ONE Sodium Chloride 1,000 mls @ 999 mls/hr 10/04/22 23:46 10/04/22 23:57 Sodium Chloride 0.9% 1000 Ml IV 10/05/22 00:46 999 mls/hr .Q1H1M STA Administration Sodium Chloride Confirm 10/04/22 23:56 Sodium Chloride 0.9% 1000 Ml Administered 10/04/22 23:57 Dose 1,000 mls @ ud .ROUTE .STK-MED ONE Potassium Chloride 40 meq 10/04/22 23:15 10/04/22 23:28 Potassium Chloride Tab 10 Meq Tab PO 10/04/22 23:16 40 meq STAT ONE Administration Potassium Chloride Confirm 10/04/22 23:27 Potassium Chloride Tab 10 Meq Tab Administered 10/04/22 23:28 Dose 40 meq PO .STK-MED ONE Lab/Rad Data: Laboratory Result Diagrams 10/04/22 21:54 10/04/22 21:54 Laboratory Results 10/05/22 10/04/22 10/04/22 Range/Units 00:03 23:29 23:26 WBC (4.0-10.5) x10^3/uL RBC (4.1-5.6) x10^6/uL Hgb (12.5-18.0) g/dL Hct (42-50) % MCV (78-100) fL MCH (26-32) pg MCHC (32-36) g/dL RDW (11.5-14.0) % Plt Count (150-450) x10^3/uL MPV (7.5-11.0) fL Gran % (36.0-66.0) % Immature Gran % (Auto) (0.00-0.4) % Nucleat RBC Rel Count (0.00-0.1) % Eos # (Auto) (0-0.5) x10^3/uL Immature Gran # (Auto) (0.00-0.03) x10^3u/L Absolute Lymphs (auto) (1.0-4.6) x10^3/uL Absolute Monos (auto) (0.0-1.3) x10^3/uL Absolute Nucleated RBC (0.00-0.01) x10^3u/L Lymphocytes % (24.0-44.0) % Monocytes % (0.0-12.0) % Eosinophils % (0.00-5.0) % Basophils % (0.0-0.4) % Absolute Granulocytes (1.4-6.9) x10^3/uL Basophils # (0-0.4) x10^3/uL D-Dimer (0.0-0.50) mg/L Sodium (137-145) mmol/L Potassium (3.5-5.1) mmol/L Chloride (98-107) mmol/L Carbon Dioxide (22-30) mmol/L Anion Gap (5-15) MEQ/L BUN (9-20) mg/dL Creatinine (0.66-1.25) mg/dL Estimated GFR ML/MIN Glucose (74-106) mg/dL POC Glucometer (74 to 106) mg/dL Calcium (8.4-10.2) mg/dL Total Bilirubin (0.2-1.3) mg/dL AST (17-59) U/L ALT (0-50) U/L Alkaline Phosphatase (38-126) U/L Troponin I < 0.012 (0.000-0.034) ng/mL Serum Total Protein (6.3-8.2) g/dL Albumin (3.5-5.0) g/dL TSH 3rd Generation (0.47-4.68) mIU/L Urine Color (Yellow) Urine Appearance (Clear) Urine pH (4.6-8.0) Ur Specific [place] (1.005-1.030) Urine Protein (Negative) Urine Glucose (UA) (Negative) mg/dL Urine Ketones (Negative) Urine Blood (Negative) Urine Nitrite (Negative) Urine Bilirubin (Negative) Urine Urobilinogen (0.2) mg/dL Ur Leukocyte Esterase (Negative) U Hyaline Cast (Auto) (0-2) /LPF Urine Microscopic RBC (0-5) /HPF Urine Microscopic WBC (0-5) /HPF Ur Epithelial Cells (None Seen) /HPF Urine Bacteria (None Seen) /HPF Urine Culture Reflexed (NO) Urine Opiates Level NEGATIVE (NEGATIVE) Ur Methadone NEGATIVE (NEGATIVE) Urine Barbiturates NEGATIVE (NEGATIVE) Ur Phencyclidine (PCP) NEGATIVE (NEGATIVE) Urine Amphetamine NEGATIVE (NEGATIVE) U Benzodiazepine Level NEGATIVE (NEGATIVE) Urine Cocaine NEGATIVE (NEGATIVE) Urine Marijuana (THC) NEGATIVE (NEGATIVE) Influenza Type A Ag NEGATIVE (NEGATIVE) Influenza Type B Ag NEGATIVE (NEGATIVE) RSV (PCR) NEGATIVE (NEGATIVE) SARS-CoV-2 (PCR) NEGATIVE (NEGATIVE) 10/04/22 10/04/22 10/04/22 Range/Units 23:26 21:54 21:54 WBC (4.0-10.5) x10^3/uL RBC (4.1-5.6) x10^6/uL Hgb (12.5-18.0) g/dL Hct (42-50) % MCV (78-100) fL MCH (26-32) pg MCHC (32-36) g/dL RDW (11.5-14.0) % Plt Count (150-450) x10^3/uL MPV (7.5-11.0) fL Gran % (36.0-66.0) % Immature Gran % (Auto) (0.00-0.4) % Nucleat RBC Rel Count (0.00-0.1) % Eos # (Auto) (0-0.5) x10^3/uL Immature Gran # (Auto) (0.00-0.03) x10^3u/L Absolute Lymphs (auto) (1.0-4.6) x10^3/uL Absolute Monos (auto) (0.0-1.3) x10^3/uL Absolute Nucleated RBC (0.00-0.01) x10^3u/L Lymphocytes % (24.0-44.0) % Monocytes % (0.0-12.0) % Eosinophils % (0.00-5.0) % Basophils % (0.0-0.4) % Absolute Granulocytes (1.4-6.9) x10^3/uL Basophils # (0-0.4) x10^3/uL D-Dimer (0.0-0.50) mg/L Sodium (137-145) mmol/L Potassium (3.5-5.1) mmol/L Chloride (98-107) mmol/L Carbon Dioxide (22-30) mmol/L Anion Gap (5-15) MEQ/L BUN (9-20) mg/dL Creatinine (0.66-1.25) mg/dL Estimated GFR ML/MIN Glucose (74-106) mg/dL POC Glucometer (74 to 106) mg/dL Calcium (8.4-10.2) mg/dL Total Bilirubin (0.2-1.3) mg/dL AST (17-59) U/L ALT (0-50) U/L Alkaline Phosphatase (38-126) U/L Troponin I < 0.012 (0.000-0.034) ng/mL Serum Total Protein (6.3-8.2) g/dL Albumin (3.5-5.0) g/dL TSH 3rd Generation 1.200 (0.47-4.68) mIU/L Urine Color Yellow (Yellow) Urine Appearance Clear (Clear) Urine pH 5.5 (4.6-8.0) Ur Specific [place] 1.015 (1.005-1.030) Urine Protein Negative (Negative) Urine Glucose (UA) Negative (Negative) mg/dL Urine Ketones Negative (Negative) Urine Blood Negative (Negative) Urine Nitrite Negative (Negative) Urine Bilirubin Negative (Negative) Urine Urobilinogen 0.2 (0.2) mg/dL Ur Leukocyte Esterase Trace A (Negative) U Hyaline Cast (Auto) NONE SEEN (0-2) /LPF Urine Microscopic RBC 0-2 (0-5) /HPF Urine Microscopic WBC 3-5 (0-5) /HPF Ur Epithelial Cells Rare (None Seen) /HPF Urine Bacteria None Seen (None Seen) /HPF Urine Culture Reflexed NO (NO) Urine Opiates Level (NEGATIVE) Ur Methadone (NEGATIVE) Urine Barbiturates (NEGATIVE) Ur Phencyclidine (PCP) (NEGATIVE) Urine Amphetamine (NEGATIVE) U Benzodiazepine Level (NEGATIVE) Urine Cocaine (NEGATIVE) Urine Marijuana (THC) (NEGATIVE) Influenza Type A Ag (NEGATIVE) Influenza Type B Ag (NEGATIVE) RSV (PCR) (NEGATIVE) SARS-CoV-2 (PCR) (NEGATIVE) 10/04/22 10/04/22 10/04/22 Range/Units 21:54 21:54 21:54 WBC 18.0 H (4.0-10.5) x10^3/uL RBC 5.06 (4.1-5.6) x10^6/uL Hgb 15.0 (12.5-18.0) g/dL Hct 43.5 (42-50) % MCV 86.0 (78-100) fL MCH 29.6 (26-32) pg MCHC 34.5 (32-36) g/dL RDW 12.8 (11.5-14.0) % Plt Count 410 (150-450) x10^3/uL MPV 10.0 (7.5-11.0) fL Gran % 72.9 H (36.0-66.0) % Immature Gran % (Auto) 0.8 H (0.00-0.4) % Nucleat RBC Rel Count 0.0 (0.00-0.1) % Eos # (Auto) 0.02 (0-0.5) x10^3/uL Immature Gran # (Auto) 0.15 H (0.00-0.03) x10^3u/L Absolute Lymphs (auto) 3.78 (1.0-4.6) x10^3/uL Absolute Monos (auto) 0.84 (0.0-1.3) x10^3/uL Absolute Nucleated RBC 0.00 (0.00-0.01) x10^3u/L Lymphocytes % 21.0 L (24.0-44.0) % Monocytes % 4.7 (0.0-12.0) % Eosinophils % 0.1 (0.00-5.0) % Basophils % 0.5 (0.0-0.4) % Absolute Granulocytes 13.12 H (1.4-6.9) x10^3/uL Basophils # 0.09 (0-0.4) x10^3/uL D-Dimer < 0.19 (0.0-0.50) mg/L Sodium 134 L (137-145) mmol/L Potassium 3.1 L (3.5-5.1) mmol/L Chloride 99 (98-107) mmol/L Carbon Dioxide 23 (22-30) mmol/L Anion Gap 15.7 H (5-15) MEQ/L BUN 20 (9-20) mg/dL Creatinine 0.82 (0.66-1.25) mg/dL Estimated GFR > 60.0 ML/MIN Glucose 138 H (74-106) mg/dL POC Glucometer (74 to 106) mg/dL Calcium 9.0 (8.4-10.2) mg/dL Total Bilirubin 0.80 (0.2-1.3) mg/dL AST 39 (17-59) U/L ALT 36 (0-50) U/L Alkaline Phosphatase 63 (38-126) U/L Troponin I (0.000-0.034) ng/mL Serum Total Protein 7.3 (6.3-8.2) g/dL Albumin 4.3 (3.5-5.0) g/dL TSH 3rd Generation (0.47-4.68) mIU/L Urine Color (Yellow) Urine Appearance (Clear) Urine pH (4.6-8.0) Ur Specific [place] (1.005-1.030) Urine Protein (Negative) Urine Glucose (UA) (Negative) mg/dL Urine Ketones (Negative) Urine Blood (Negative) Urine Nitrite (Negative) Urine Bilirubin (Negative) Urine Urobilinogen (0.2) mg/dL Ur Leukocyte Esterase (Negative) U Hyaline Cast (Auto) (0-2) /LPF Urine Microscopic RBC (0-5) /HPF Urine Microscopic WBC (0-5) /HPF Ur Epithelial Cells (None Seen) /HPF Urine Bacteria (None Seen) /HPF Urine Culture Reflexed (NO) Urine Opiates Level (NEGATIVE) Ur Methadone (NEGATIVE) Urine Barbiturates (NEGATIVE) Ur Phencyclidine (PCP) (NEGATIVE) Urine Amphetamine (NEGATIVE) U Benzodiazepine Level (NEGATIVE) Urine Cocaine (NEGATIVE) Urine Marijuana (THC) (NEGATIVE) Influenza Type A Ag (NEGATIVE) Influenza Type B Ag (NEGATIVE) RSV (PCR) (NEGATIVE) SARS-CoV-2 (PCR) (NEGATIVE) 10/04/22 Range/Units 21:19 WBC (4.0-10.5) x10^3/uL RBC (4.1-5.6) x10^6/uL Hgb (12.5-18.0) g/dL Hct (42-50) % MCV (78-100) fL MCH (26-32) pg MCHC (32-36) g/dL RDW (11.5-14.0) % Plt Count (150-450) x10^3/uL MPV (7.5-11.0) fL Gran % (36.0-66.0) % Immature Gran % (Auto) (0.00-0.4) % Nucleat RBC Rel Count (0.00-0.1) % Eos # (Auto) (0-0.5) x10^3/uL Immature Gran # (Auto) (0.00-0.03) x10^3u/L Absolute Lymphs (auto) (1.0-4.6) x10^3/uL Absolute Monos (auto) (0.0-1.3) x10^3/uL Absolute Nucleated RBC (0.00-0.01) x10^3u/L Lymphocytes % (24.0-44.0) % Monocytes % (0.0-12.0) % Eosinophils % (0.00-5.0) % Basophils % (0.0-0.4) % Absolute Granulocytes (1.4-6.9) x10^3/uL Basophils # (0-0.4) x10^3/uL D-Dimer (0.0-0.50) mg/L Sodium (137-145) mmol/L Potassium (3.5-5.1) mmol/L Chloride (98-107) mmol/L Carbon Dioxide (22-30) mmol/L Anion Gap (5-15) MEQ/L BUN (9-20) mg/dL Creatinine (0.66-1.25) mg/dL Estimated GFR ML/MIN Glucose (74-106) mg/dL POC Glucometer 135 H (74 to 106) mg/dL Calcium (8.4-10.2) mg/dL Total Bilirubin (0.2-1.3) mg/dL AST (17-59) U/L ALT (0-50) U/L Alkaline Phosphatase (38-126) U/L Troponin I (0.000-0.034) ng/mL Serum Total Protein (6.3-8.2) g/dL Albumin (3.5-5.0) g/dL TSH 3rd Generation (0.47-4.68) mIU/L Urine Color (Yellow) Urine Appearance (Clear) Urine pH (4.6-8.0) Ur Specific [place] (1.005-1.030) Urine Protein (Negative) Urine Glucose (UA) (Negative) mg/dL Urine Ketones (Negative) Urine Blood (Negative) Urine Nitrite (Negative) Urine Bilirubin (Negative) Urine Urobilinogen (0.2) mg/dL Ur Leukocyte Esterase (Negative) U Hyaline Cast (Auto) (0-2) /LPF Urine Microscopic RBC (0-5) /HPF Urine Microscopic WBC (0-5) /HPF Ur Epithelial Cells (None Seen) /HPF Urine Bacteria (None Seen) /HPF Urine Culture Reflexed (NO) Urine Opiates Level (NEGATIVE) Ur Methadone (NEGATIVE) Urine Barbiturates (NEGATIVE) Ur Phencyclidine (PCP) (NEGATIVE) Urine Amphetamine (NEGATIVE) U Benzodiazepine Level (NEGATIVE) Urine Cocaine (NEGATIVE) Urine Marijuana (THC) (NEGATIVE) Influenza Type A Ag (NEGATIVE) Influenza Type B Ag (NEGATIVE) RSV (PCR) (NEGATIVE) SARS-CoV-2 (PCR) (NEGATIVE) - Progress Progress: improved Progress Note: Patient is a 32-year-old male presents to our ED for evaluation of intermittent dizziness and and lightheadedness. Symptoms started after donating plasma twice within a week's period. Initial presentation showed positive orthostasis. Physical exam reveals a resting sinus tachycardia. Physical exam otherwise negative. Testing includes CBC CMP EKG. EKG showed a sinus tachycardia. CBC reveals a leukocytosis of 18,000. Therefore we did a chest x-ray to assess for possible pneumonia. Chest x-ray negative. Blood cultures obtained. CMP reveals a 21 BUN/creatinine ratio. Potassium was 3.1. Patient received 40 mEq oral potassium and 2 g of magnesium IV. In light of patient's symptomology COVID test was ordered. COVID was negative. D-dimer negative. Troponin nega tive. TSH was ordered due to sinus tachycardia. TSH within normal limits. Urinalysis negative. Urine triage negative. Patient received 2 L normal saline. Patient reassessed. He states he feels significantly better. Sinus tachycardia resolved. Repeat EKG reveals a sinus rhythm at a rate of 70. It is likely that patient symptomology/dehydration/hypovolemia was due to significant volume loss secondary to plasma donation. This may have contributed to patient's electrolyte abnormalities as well and patient's symptomology of dizziness orthostasis and lightheadedness. At discharge patient was asymptomatic. He felt well. Patient voiced no other complaints or concerns this time. Patient agreed to follow-up with his primary care doctor within 48 hours for reevaluation. Portions of this note were created with voice recognition technology. There may be grammatical, spelling, punctuation or sound alike errors Complexity of problem addressed is moderate acute complicated No critical care time Complexity of data reviewed and analyzed is moderate. Test ordered test reviewed and analyzed. Tests correlated clinically with physical exam findings. Patient management determined based on results of clinical and testing correlation. Treatment resolved patient's symptomology. Risk of complication and or risk morbidity/mortality patient management is moderate. Patient received oral potassium which required monitoring. Patient received 2 L normal saline and 2 g of magnesium. Patient discharged home. Vital stable. Tachycardia resolved. Plan of care established for shared decision making. No social determinants of health present to impede follow-up. Patient voices no other complaints or concerns at this time. Portions of this note were created with voice recognition technology. There may be grammatical, spelling, punctuation or sound alike errors 10/05/22 01:55 Counseled pt/family regarding: lab results, diagnosis - Departure Departure Disposition: Home Clinical Impression: Hypokalemia, Leukocytosis, Sinus tachycardia, Dehydration Condition: Stable Critical Care Time: No Referrals: LUIS E MEJIA MD [Primary Care Provider] - Follow up/PCP as directed Additional Instructions: Discharge/Care Plan EDDIE LOPEZ was seen on 10/05/22 in the Emergency Room. The patient was counseled regarding Diagnosis,Lab results, Imaging studies, need for follow up and when to return to the Emergency Room. Prescriptions given: Discharge Note I have spoken with the patient and/or caregivers. I have explained the patient's condition, diagnosis and treatment plan based on the information available to me at this time. I have answered the patient's and/or caregiver's questions and addressed any concerns. The patient and/or caregivers have as good understanding of the patient's diagnosis, condition and treatment plan as can be expected at this point. The vital signs have been stable. The patient's condition is stable and appropriate for discharge from the emergency department. The patient will pursue further outpatient evaluation with the primary care physician or other designated or consulting physician as outlined in the discharge instructions. The patient and/or caregivers are agreeable to this plan of care and follow-up instructions have been explained in detail. The patient and/or caregivers have received these instruction. The patient/and or caregivers are aware that any significant change in condition or worsening of symptoms should prompt an immediate return to this or the closest emergency department or call 911.
[2022-10-04] MEDS ORDERED: Magnesium 1 Gm / 100 Ml D5W*** 200 ML IV ONE (23:27)
[2022-10-04] MEDS: Magnesium 1 Gm / 100 Ml D5W*** 100 ML IV SCH ×2 (23:36→23:59)
[2022-10-04 23:38] LABS: Appearance Clear (Clear); Bacteria None Seen /HPF (None Seen); Bilirubin Negative (Negative); Blood Negative (Negative); Epithelial Cells Rare /HPF (None Seen); Glucose, Urine Negative (Negative); Hyaline Casts NONE SEEN /LPF (0-2); Ketones Negative (Negative); Leukocyte Esterase Trace (Negative); Nitrite Negative (Negative); Ph 5.5 (4.6-8.0); Protein,Urine Dip Negative (Negative); RBC 0-2 /HPF (0-5); Specific Gravity 1.015 (1.005-1.030); Urobilinogen 0.2 mg/dL (0.2)
[2022-10-04 23:39] LABS: ADD URINE CULTURE? NO (NO)
[2022-10-04 23:48] LABS: Amphetamine,Urine NEGATIVE (NEGATIVE); Barbiturate,Urine NEGATIVE (NEGATIVE); Benzodiazepine,Urine NEGATIVE (NEGATIVE); Cocaine,Urine NEGATIVE (NEGATIVE); Methadone,Urine NEGATIVE (NEGATIVE); Opiate,Urine NEGATIVE (NEGATIVE); PCP,Urine NEGATIVE (NEGATIVE); THC,Urine NEGATIVE (NEGATIVE)
[2022-10-05 00:07] LABS: INFLUENZA A NEGATIVE (NEGATIVE); INFLUENZA B NEGATIVE (NEGATIVE); RESPIRATORY SYNCTIAL VIRUS NEGATIVE (NEGATIVE); SARS-CoV-2 Xpert Express NEGATIVE (NEGATIVE)
[2022-10-05 02:06] VITALS: BP 110/71; PULSE 74
--- NOTE | 2022-10-05 08:34 | XRAY ---
Indication: Short of breath. Comparison: March 17, 2016 Portable chest again demonstrates normal heart, lungs, and bony thorax.
== END 2022-10-05 02:02 | disposition home or self-care (01) ==
LOC: ED 20:54
DX: E87.6 Hypokalemia (principal); D72.829 Elevated white blood cell count, unspecified; R00.0 Tachycardia, unspecified; E86.0 Dehydration; R42 Dizziness and giddiness; R53.1 Weakness; I10 Essential (primary) hypertension; Z28.310 Unvaccinated for COVID-19; Z72.0 Tobacco use
CPT/HCPCS: 0241U; 36000; 36415; 71045; 80053; 80307; 81001; 82947; 84443; 84484; 85025; 85379; 87040; 93005; 96360; 96361; 96365; 96366; 96374; 99284; J3475; A9270-GY

== ENCOUNTER 2022-11-21 12:11 | Emergency (ER) | payer BC, OTHER ==
[2022-11-21 12:35] VITALS: TEMP 99.5
[2022-11-21 13:07] LABS: Absolute Neutrophil Ct (ANC) 8.51 x10^3/uL (1.4-6.9); BASOPHIL % 0.3 % (0.0-0.4); Basophil (Absolute #) 0.04 x10^3/uL (0-0.4); Eosinophil % 0.3 % (0.00-5.0); Eosinophil (Absolute #) 0.04 x10^3/uL (0-0.5); Hematocrit 34.1 % (42-50); Hemoglobin 11.6 g/dL (12.5-18.0); IMMATURE GRAN # 0.06 x10^3u/L (0.00-0.03); IMMATURE GRAN % 0.5 % (0.00-0.4); Lymphocyte (Absolute #) 2.18 x10^3/uL (1.0-4.6); Lymphocytes % 17.8 % (24.0-44.0); Mean Corpuscular Hemoglobin 29.6 pg (26-32); Mean Platelet Volume 9.4 fL (7.5-11.0); Monocyte (Absolute #) 1.42 x10^3/uL (0.0-1.3); Monocytes % 11.6 % (0.0-12.0); Neutrophil % 69.5 % (36.0-66.0); Platelet Count 337 x10^3/uL (150-450); Red Blood Count 3.92 x10^6/uL (4.1-5.6); Red Cell Distribution Width 12.3 % (11.5-14.0); White Blood Count 12.3 x10^3/uL (4.0-10.5)
--- NOTE | 2022-11-21 13:10 | ERPHSYRPT ---
- History of Present Illness Source: patient Exam Limitations: other (Poor historian) Patient Subjective Stated Complaint: Patient c/o intermittent fever for 4 days but states that he doesn't have a thermometer at home to check the degree. He has also had rectal pain during this time frame. Triage Nursing Assessment: Patient ambulated back to ER without difficulites. He is alert and oriented. No SOB. Patient's skin tone normal but moist; sweating. [place] WNL. Dry, non-productive cough noted; patient reports it is a new cough also over the past 4 days. Patient is anxious. Physician History: 32 yo WM w intermittent fever x 4 days. Pt has a mild cough/ST/rectal pain but denies coryza/N/V/D/dysuria/hematuria. 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 Associated Symptoms: cough, diaphoresis Allergies/Adverse Reactions: No Known Drug Allergies Allergy (Verified 11/21/22 12:17) Home Medications: Bupropion HCl Xl 150 mg [Wellbutrin XL 150 MG] 1 tab PO DAILY 11/21/22 [History] Cephalexin Mh 500 mg [Keflex 500 mg] 1 cap PO DAILY 11/21/22 [History] Chlorthalidone 1 tab PO DAILY 11/21/22 [History] Ketorolac Trometh 10 mg Tab [TORAdol 10 MG TABLET] 1 tab PO QID PRN 11/21 [History] Lisinopril 20 mg [Zestril 20 MG] 1 tab PO DAILY 11/21/22 [History] Sertraline HCl 50 mg [Zoloft 50 mg Tablet] 1 tab PO DAILY 11/21/22 [History] Hx Tetanus, Diphtheria Vaccination/Date Given: Yes Hx Influenza Vaccination/Date Given: No Hx Pneumococcal Vaccination/Date Given: No Immunizations Up to Date: Yes Travel Risk - International Travel Have you traveled outside of the country in past 3 weeks: No - Coronavirus Screening Are you exhibiting any of the following symptoms?: Yes Symptoms: Fever, Cough: New Onset - Vaccine Status Have you recieved a Covid-19 vaccination: No - Review of Systems Constitutional: Fever, Malaise Eyes: No Symptoms Ears, Nose, & Throat: No Symptoms, Throat Pain Respiratory: No Symptoms, Cough Cardiac: No Symptoms Abdominal/Gastrointestinal: No Symptoms Genitourinary Symptoms: No Symptoms Musculoskeletal: No Symptoms Skin: No Symptoms Neurological: No Symptoms Psychological: No Symptoms Endocrine: No Symptoms Hematologic/Lymphatic: No Symptoms Immunological/Allergic: No Symptoms - Past Medical History Pertinent Past Medical History: Yes Neurological History: Migraines ENT History: No Pertinent History Cardiac History: Hypertension Respiratory History: No Pertinent History Endocrine Medical History: Other Musculoskeletal History: Other GI Medical History: Crohns Disease, GERD, Irritable Bowel, Ulcer, Other History: No Pertinent History Psycho-Social History: Anxiety, Attention Deficit Disorder, Depression Male Reproductive Disorders: No Pertinent History Other Medical History: hx PANCREATITIS, "PRE STAGES CROHNS", ADHD. acid reflux and possible ulcers. back pain - Past Surgical History Past Surgical History: Yes Neuro Surgical History: No Pertinent History Cardiac: No Pertinent History Respiratory: No Pertinent History Gastrointestinal: Cholecystectomy Genitourinary: No Pertinent History Musculoskeletal: No Pertinent History Male Surgical History: No Pertinent History Other Surgical History: dental - Social History Smoking Status: Current some day smoker How long have you smoked: 15 years Exposure to second hand smoke: Yes Drug Use: marijuana Patient Lives Alone: No - Nursing Vital Signs Nursing Vital Signs: Initial Vital Signs Temperature 99.5 F 11/21/22 12:11 Pulse Rate 113 H 11/21/22 12:11 Respiratory Rate 17 11/21/22 12:11 Blood Pressure 130/82 11/21/22 12:11 O2 Sat by Pulse Oximetry 96 11/21/22 12:11 Pain Scale Pain Intensity 7 Tachy - Physical Exam General Appearance: no apparent distress (Diaphoretic) Eye Exam: PERRL/EOMI, eyes nml inspection ENT Exam: TMs normal, pharyngeal erythema (Mild) Neck Exam: normal inspection, non-tender, supple, full range of motion, trachea midline, No Brudzinski's sign, No Kernig's sign Respiratory Exam: normal breath sounds, lungs clear, no respiratory distress Cardiovascular/Chest Exam: tachycardia, No murmur Gastrointestinal/Abdominal Exam: soft, non tender, no distention Rectal Exam: normal exam, No hemorrhoids Extremity Exam: non-tender, normal range of motion, normal inspection, normal capillary refill Neurologic Exam: alert, oriented x 3, cooperative, 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, normal mood/affect, nml cerebellar function, nml station & gait, sensation nml Skin Exam: normal color, warm, dry, No rash Lymphatic: No adenopathy SpO2 Interpretation: normal SpO2: 96 O2 Delivery: Room Air - Course Nursing assessment & vital signs reviewed: Yes - CT Exams Chest CT Interpretation: Tele-radiologist Report (NAD) Abdomen/Pelvis CT Interpretation: Tele-radiologist Report (NAD) Ordered Tests: Active Orders 24 hr Category Date Time Status ABDOMEN AND PELVIS W CONTRAST [CT] Stat Exams 11/21/22 14:50 Completed CHEST 1 VIEW (PORTABLE) Stat Exams 11/21/22 13:50 Completed CHEST WITH CONTRAST [CT] Stat Exams 11/21/22 14:50 Completed CBC W DIFF Stat Lab 11/21/22 13:02 Completed CMP Stat Lab 11/21/22 13:02 Completed Lactic Acid Stat Lab 11/21/22 13:00 Completed UA W/RFX UR CULTURE Stat Lab 11/21/22 13:45 Completed Medication Summary Discontinued Medications Generic Name Dose Route Start Last Admin Trade Name Alvina PRN Reason Stop Dose Admin Hydrocodone Bitart/Acetaminophen 2 tab 11/21/22 19:25 11/21/22 19:36 Hydrocodone/Apap 5/325 1 Tab Tablet PO 11/21/22 19:26 2 tab SENT HOME W/ PATIENT ONE Administration Hydrocodone Bitart/Acetaminophen Confirm 11/21/22 19:31 Hydrocodone/Apap 5/325 1 Tab Tablet Administered 11/21/22 19:32 Dose 2 tab .ROUTE .STK-MED ONE Fentanyl Citrate 50 mcg 11/21/22 19:23 11/21/22 19:34 Fentanyl Citrate 100 Mcg/2 Ml* Vial IV 11/21/22 19:24 50 mcg STAT ONE Administration Fentanyl Citrate Confirm 11/21/22 19:30 Fentanyl Citrate 100 Mcg/2 Ml* Vial Administered 11/21/22 19:31 Dose 100 mcg .ROUTE .STK-MED ONE Sodium Chloride 1,000 mls @ 999 mls/hr 11/21/22 14:51 11/21/22 16:01 Sodium Chloride 0.9% 1000 Ml IV 11/21/22 15:51 Infused .Q1H1M STA Infusion Sodium Chloride Confirm 11/21/22 14:54 Sodium Chloride 0.9% 1000 Ml Administered 11/21/22 14:55 Dose 1,000 mls @ ud .ROUTE .STK-MED ONE Levofloxacin 750 mg 11/21/22 19:24 11/21/22 19:35 Levofloxacin 250 Mg Tab PO 11/21/22 19:25 750 mg STAT ONE Administration Levofloxacin Confirm 11/21/22 19:30 Levofloxacin 250 Mg Tab Administered 11/21/22 19:31 Dose 750 mg .ROUTE .STK-MED ONE Ondansetron HCl 4 mg 11/21/22 19:24 11/21/22 19:34 Ondansetron Hcl 4 Mg/2 Ml Vial IV 11/21/22 19:25 4 mg STAT ONE Administration Ondansetron HCl Confirm 11/21/22 19:30 Zofran 4 Mg/Udtablet Orally Disintegrating Administered 11/21/22 19:31 Dose 4 mg .ROUTE .STK-MED ONE Ondansetron HCl Confirm 11/21/22 19:32 Ondansetron Hcl 4 Mg/2 Ml Vial Administered 11/21/22 19:33 Dose 4 mg .ROUTE .STK-MED ONE Lab/Rad Data: Laboratory Result Diagrams 11/21/22 13:02 11/21/22 13:02 Laboratory Results 11/21/22 11/21/22 11/21/22 Range/Units 13:45 13:02 13:02 WBC 12.3 H (4.0-10.5) x10^3/uL RBC 3.92 L (4.1-5.6) x10^6/uL Hgb 11.6 L (12.5-18.0) g/dL Hct 34.1 L (42-50) % MCV 87.0 (78-100) fL MCH 29.6 (26-32) pg MCHC 34.0 (32-36) g/dL RDW 12.3 (11.5-14.0) % Plt Count 337 (150-450) x10^3/uL MPV 9.4 (7.5-11.0) fL Gran % 69.5 H (36.0-66.0) % Immature Gran % (Auto) 0.5 H (0.00-0.4) % Nucleat RBC Rel Count 0.0 (0.00-0.1) % Eos # (Auto) 0.04 (0-0.5) x10^3/uL Immature Gran # (Auto) 0.06 H (0.00-0.03) x10^3u/L Absolute Lymphs (auto) 2.18 (1.0-4.6) x10^3/uL Absolute Monos (auto) 1.42 H (0.0-1.3) x10^3/uL Absolute Nucleated RBC 0.00 (0.00-0.01) x10^3u/L Lymphocytes % 17.8 L (24.0-44.0) % Monocytes % 11.6 (0.0-12.0) % Eosinophils % 0.3 (0.00-5.0) % Basophils % 0.3 (0.0-0.4) % Absolute Granulocytes 8.51 H (1.4-6.9) x10^3/uL Basophils # 0.04 (0-0.4) x10^3/uL Sodium 135 L (137-145) mmol/L Potassium 3.2 L (3.5-5.1) mmol/L Chloride 99 (98-107) mmol/L Carbon Dioxide 25 (22-30) mmol/L Anion Gap 14.6 (5-15) MEQ/L BUN 17 (9-20) mg/dL Creatinine 1.04 (0.66-1.25) mg/dL Estimated GFR > 60.0 ML/MIN Glucose 110 H (74-106) mg/dL Lactic Acid (0.4-2.0) Calcium 9.1 (8.4-10.2) mg/dL Total Bilirubin 1.10 (0.2-1.3) mg/dL AST 24 (17-59) U/L ALT 30 (0-50) U/L Alkaline Phosphatase 56 (38-126) U/L Serum Total Protein 7.5 (6.3-8.2) g/dL Albumin 4.3 (3.5-5.0) g/dL Urine Color Dark Yellow (Yellow) Urine Appearance Cloudy A (Clear) Urine pH 5.5 (4.6-8.0) Ur Specific [place] >=1.030 A (1.005-1.030) Urine Protein Trace A (Negative) Urine Glucose (UA) Negative (Negative) mg/dL Urine Ketones Trace A (Negative) Urine Blood Negative (Negative) Urine Nitrite Negative (Negative) Urine Bilirubin Small A (Negative) Urine Urobilinogen 1.0 A (0.2) mg/dL Ur Leukocyte Esterase Trace A (Negative) U Hyaline Cast (Auto) 0-2 (0-2) /LPF Urine Microscopic RBC 3-5 (0-5) /HPF Urine Microscopic WBC 3-5 (0-5) /HPF Ur Epithelial Cells Few (None Seen) /HPF Urine Bacteria Rare A (None Seen) /HPF Urine Culture Reflexed NO (NO) Influenza Type A Ag (NEGATIVE) Influenza Type B Ag (NEGATIVE) RSV (PCR) (NEGATIVE) SARS-CoV-2 (PCR) (NEGATIVE) Group A Strep Antibody (NEGATIVE) 11/21/22 11/21/22 11/21/22 Range/Units 13:00 12:56 12:56 WBC (4.0-10.5) x10^3/uL RBC (4.1-5.6) x10^6/uL Hgb (12.5-18.0) g/dL Hct (42-50) % MCV (78-100) fL MCH (26-32) pg MCHC (32-36) g/dL RDW (11.5-14.0) % Plt Count (150-450) x10^3/uL MPV (7.5-11.0) fL Gran % (36.0-66.0) % Immature Gran % (Auto) (0.00-0.4) % Nucleat RBC Rel Count (0.00-0.1) % Eos # (Auto) (0-0.5) x10^3/uL Immature Gran # (Auto) (0.00-0.03) x10^3u/L Absolute Lymphs (auto) (1.0-4.6) x10^3/uL Absolute Monos (auto) (0.0-1.3) x10^3/uL Absolute Nucleated RBC (0.00-0.01) x10^3u/L Lymphocytes % (24.0-44.0) % Monocytes % (0.0-12.0) % Eosinophils % (0.00-5.0) % Basophils % (0.0-0.4) % Absolute Granulocytes (1.4-6.9) x10^3/uL Basophils # (0-0.4) x10^3/uL Sodium (137-145) mmol/L Potassium (3.5-5.1) mmol/L Chloride (98-107) mmol/L Carbon Dioxide (22-30) mmol/L Anion Gap (5-15) MEQ/L BUN (9-20) mg/dL Creatinine (0.66-1.25) mg/dL Estimated GFR ML/MIN Glucose (74-106) mg/dL Lactic Acid 1.2 (0.4-2.0) Calcium (8.4-10.2) mg/dL Total Bilirubin (0.2-1.3) mg/dL AST (17-59) U/L ALT (0-50) U/L Alkaline Phosphatase (38-126) U/L Serum Total Protein (6.3-8.2) g/dL Albumin (3.5-5.0) g/dL Urine Color (Yellow) Urine Appearance (Clear) Urine pH (4.6-8.0) Ur Specific [place] (1.005-1.030) Urine Protein (Negative) Urine Glucose (UA) (Negative) mg/dL Urine Ketones (Negative) Urine Blood (Negative) Urine Nitrite (Negative) Urine Bilirubin (Negative) Urine Urobilinogen (0.2) mg/dL Ur Leukocyte Esterase (Negative) U Hyaline Cast (Auto) (0-2) /LPF Urine Microscopic RBC (0-5) /HPF Urine Microscopic WBC (0-5) /HPF Ur Epithelial Cells (None Seen) /HPF Urine Bacteria (None Seen) /HPF Urine Culture Reflexed (NO) Influenza Type A Ag NEGATIVE (NEGATIVE) Influenza Type B Ag NEGATIVE (NEGATIVE) RSV (PCR) NEGATIVE (NEGATIVE) SARS-CoV-2 (PCR) NEGATIVE (NEGATIVE) Group A Strep Antibody NOT DETECTED (NEGATIVE) - Progress Progress Note: 11/21/22 22:57 Nursing note and vital signs reviewed No food or housing insecurities noted All lab results reviewed and shared w pt All CT results reviewed and shared w pt 11/21/22 22:59 50mcg IV Fentanyl/4mg IV Zofran w improvement in pain 11/21/22 23:00 1L NS bolus Pt's pain possibly due to prostatitis. He has no evidence of CV19/pneumonia/UTI/surgical abdomen/perirectal abscess. 750mg PO Levaquin Additional history per Counseled pt/family regarding: lab results, diagnosis, need for follow-up, rad results Medical Desision Making - Independent Historian Additional History obtained from: Spouse - Diagnostic Testing Diagnostic test were ordered, analyzed, and reviewed by me: Yes Radiological Interpretation: Reviewed by me, Teleradiologist Report - Risk of complications The pt has a mod risk of morbidity or mortality based on: Need for prescription drug management - Departure Departure Disposition: Home Clinical Impression: Acute prostatitis Condition: Stable Critical Care Time: No Referrals: LUIS E MEJIA MD [Primary Care Provider] - Follow up/PCP as directed Instructions: Prostatitis (DC) Additional Instructions: Levaquin once a day for 1 week Pain meds as needed Fluids Follow up with your family MD in 1-2 days Return to ER for increasing pain or temperature greater than 100.5 Forms: Work/School Release Form Prescriptions: levoFLOXacin [Levofloxacin] 750 mg PO DAILY #7 tablet
[2022-11-21 13:27] LABS: ALBUMIN 4.3 g/dL (3.5-5.0); ALKALINE PHOSPHATASE 56 U/L (38-126); ANION GAP 14.6 MEQ/L (5-15); BLOOD UREA NITROGEN 17 mg/dL (9-20); CHLORIDE 99 mmol/L (98-107); Calcium 9.1 mg/dL (8.4-10.2); Carbon Dioxide 25 mmol/L (22-30); Creatinine 1 1.04 mg/dL (0.66-1.25); EST GLOMERULAR FILTRATION RATE > 60.0 ML/MIN; Glucose 110 mg/dL (74-106); Potassium 3.2 mmol/L (3.5-5.1); SGOT/AST 24 U/L (17-59); SGPT/ALT 30 U/L (0-50); SODIUM 135 mmol/L (137-145); Total Protein 7.5 g/dL (6.3-8.2)
[2022-11-21 13:43] LABS: INFLUENZA A NEGATIVE (NEGATIVE); INFLUENZA B NEGATIVE (NEGATIVE); RESPIRATORY SYNCTIAL VIRUS NEGATIVE (NEGATIVE); SARS-CoV-2 Xpert Express NEGATIVE (NEGATIVE)
[2022-11-21 14:00] VITALS: PULSE 95
[2022-11-21 14:24] LABS: Appearance Cloudy (Clear); Bilirubin Small (Negative); Blood Negative (Negative); Epithelial Cells Few /HPF (None Seen); Glucose, Urine Negative (Negative); Ketones Trace (Negative); Leukocyte Esterase Trace (Negative); Nitrite Negative (Negative); Ph 5.5 (4.6-8.0); Protein,Urine Dip Trace (Negative); Specific Gravity >=1.030 (1.005-1.030)
[2022-11-21 14:39] LABS: ADD URINE CULTURE? NO (NO); Bacteria Rare /HPF (None Seen); Hyaline Casts 0-2 /LPF (0-2)
[2022-11-21] MEDS ORDERED: Sodium Chloride 0.9% 1000 ML 1,000 ML IV STA (14:51)
[2022-11-21] MEDS ORDERED: Sodium Chloride 0.9% 1000 ML 1,000 ML ONE (14:54)
--- NOTE | 2022-11-21 17:20 | XRAY ---
CLINICAL HISTORY:fever COMPARISON:None. TECHNIQUE:Contiguous thin axial CT images of the chest were acquired with the administration of intravenous contrast. Coronal and sagittal reconstructions were obtained. 100 cc Isovue was administered for post-contrast images. FINDINGS: The scanned pulmonary parenchyma shows no definite consolidative lesions. No free or encysted pleural effusion. Heart size is normal, and there is no pericardial effusion. No pathologically enlarged mediastinal, hilar, or axillary lymph node was identified. There is no definite mass lesion in the chest wall. The scanned upper abdomen is unremarkable. IMPRESSION: Unremarkable CT study for the chest. Electronically Signed by: Ken Silverman MD. (11/21/2022 16:19:19 WELDER/FABRICATOR)
[2022-11-21 18:02] VITALS: RESP 17
--- NOTE | 2022-11-21 18:59 | XRAY ---
Indication: Cough and fever. Comparison: October 04, 2022 Portable apical lordotic chest again demonstrates normal heart, lungs, and bony thorax.
--- NOTE | 2022-11-21 19:08 | XRAY ---
CLINICAL HISTORY:Fever/Rectal pain COMPARISON:None. TECHNIQUE:A CT scan of the abdomen and pelvis was performed with IV contrast 100 cc Isovue. Delay images were acquired. Coronal and sagittal reconstructive images were also obtained. FINDINGS: Abdomen: Hepatomegaly, measuring 19 cm at the largest craniocaudal span in the right lobe. No focal or diffuse parenchymal abnormality. The portal vein, intrahepatic biliary radicals, and the bile ducts are normal. Splenomegaly, measuring 16 X 13 X 6 cm. There are several tiny calcified foci, most likely corresponding to granulomas. The spleen, pancreas, and adrenal glands are unremarkable. The kidneys are unremarkable. They are normal in size and shape. No calculi or hydronephrosis. The gallbladder was surgically removed. The ascending colon, the transverse colon, the descending colon, visualized small bowel loops are unremarkable. There is no evidence of significant enlargement of the mesenteric or retroperitoneal lymph nodes. Pelvis: The urinary bladder is unremarkable. The rectosigmoid colon is unremarkable. The prostate is unremarkable. The pelvic vasculature is unremarkable. No evidence of pelvic lymphadenopathy. The osseous structures in the pelvis, lower rib cage, and lumbar spine show no abnormality. No lytic or sclerotic bone lesions. IMPRESSION: Hepatosplenomegaly. Calcified splenic granulomas. Clinical and laboratory correlation is advised. Electronically Signed by: Ken Silverman MD. (11/21/2022 18:07:44 LICENSED MASSAGE PRACTITIONER)
[2022-11-21] MEDS ORDERED: SUBLIMAZE 100 MCG/2 ML IV ONE (19:23)
[2022-11-21] MEDS ORDERED: Zofran 4 MG/2 ML VIAL IV ONE (19:24)
[2022-11-21] MEDS ORDERED: Levofloxacin 250MG Tablet PO ONE (19:24)
[2022-11-21] MEDS ORDERED: NORCO 5/325 MG PO ONE (19:25)
[2022-11-21 19:30] VITALS: O2SAT 96
[2022-11-21] MEDS ORDERED: Levofloxacin 250MG Tablet ONE (19:30)
[2022-11-21] MEDS ORDERED: SUBLIMAZE 100 MCG/2 ML ONE (19:30)
[2022-11-21] MEDS ORDERED: ZOFRAN ODT 4 MG ONE (19:30)
[2022-11-21] MEDS ORDERED: NORCO 5/325 MG ONE (19:31)
[2022-11-21] MEDS ORDERED: Zofran 4 MG/2 ML VIAL ONE (19:32)
[2022-11-21 20:10] VITALS: BP 130/84
== END 2022-11-21 20:00 | disposition home or self-care (01) ==
LOC: ED 12:11
DX: N41.0 Acute prostatitis (principal); R50.9 Fever, unspecified; R05.9 Cough, unspecified; J02.9 Acute pharyngitis, unspecified; K62.89 Other specified diseases of anus and rectum; I10 Essential (primary) hypertension; Z79.899 Other long term (current) drug therapy; Z28.310 Unvaccinated for COVID-19; Z72.0 Tobacco use
CPT/HCPCS: 0241U; 36000; 36415; 71045; 71260; 74177; 80053; 81001; 83605; 85025; 87651; 96374; 99284; J2405; J3010; Q0162; A9270-GY